=== PATIENT | male | born 1975 | race Caucasian/White ===

== ENCOUNTER 2022-03-13 11:03 | Emergency (ER) | payer BC, MEDICAID ==
[~2022-03-13] VITALS: Ht 172.7 cm; Wt 86.4 kg
[2022-03-13 16:59] LABS: BASOPHILS # (AUTO) 0.1 X10'3 (0-0.2); EOSINOPHILS # (AUTO) 0.1 X10'3 (0-0.9); EOSINOPHILS % (AUTO) 0.9 % (0-6); HEMATOCRIT 44.8 % (42.0-52.0); HEMOGLOBIN 15.2 g/dl (14.0-17.9); LYMPHOCYTES # (AUTO) 3.3 X10'3 (1.1-4.8); LYMPHOCYTES % (AUTO) 28.6 % (21-51); MEAN CORPUSCULAR HEMOGLOBIN 30.2 PG (27.0-31.0); MEAN CORPUSCULAR HGB CONC 33.9 g/dL (33.0-36.5); MEAN CORPUSCULAR VOLUME 89.1 FL (78-98); MEAN PLATELET VOLUME 8.6 FL (7.4-10.4); MONOCYTES # (AUTO) 0.8 X10'3 (0-0.9); MONOCYTES % (AUTO) 6.6 % (2-12); NEUTROPHILS # (AUTO) 7.2 X10'3 (1.8-7.7); NEUTROPHILS % (AUTO) 62.9 % (42-75); PLATELET COUNT 376 X10'3 (140-440); RED BLOOD COUNT 5.03 X10'6 (4.70-6.10); RED CELL DISTRIBUTION WIDTH 14.7 % (11.5-14.5); WHITE BLOOD COUNT 11.5 X10'3 (4.5-11.0)
[2022-03-13 17:16] LABS: ALANINE AMINOTRANSFERASE 11 U/L (12-78); ALBUMIN 4.1 G/DL (3.4-5.0); ALBUMIN/GLOBULIN RATIO 1.1 (1.1-1.5); ALKALINE PHOSPHATASE 82 IU/L (46-116); ANION GAP 11 (8-16); ASPARTATE AMINO TRANSFERASE 20 U/L (10-37); BILIRUBIN,TOTAL 0.8 MG/DL (0.1-1.0); BLOOD UREA NITROGEN 13 MG/DL (7-18); BUN/CREATININE RATIO 14.3 (5.4-32.0); CHLORIDE 101 MMOL/L (99-107); CREATININE 0.91 MG/DL (0.60-1.10); ETHANOL < 0.010 GM/DL (0.0-0.010); GLUCOSE 208 MG/DL (70-104); SODIUM 139 MMOL/L (135-145); TOTAL CARBON DIOXIDE 27.4 MMOL/L (24-32); TOTAL PROTEIN 7.9 G/DL (6.4-8.2); eGFR 89 ML/MIN
[2022-03-13 17:28] LABS: POTASSIUM 2.7 MMOL/L (3.5-5.1)
[2022-03-13 17:29] LABS: CALCIUM 12.1 MG/DL (8.5-10.1)
[2022-03-13 17:50] LABS: URINE AMPHETAMINE SCREEN NEGATIVE (Neg); URINE BARBITUATE SCREEN NEGATIVE (Neg); URINE BENZODIAZEPINES SCREEN NEGATIVE (Neg); URINE CANNABINOID SCREEN NEGATIVE (Neg); URINE COCAINE SCREEN NEGATIVE (Neg); URINE METHADONE SCREEN NEGATIVE (Neg); URINE OPIATE SCREEN NEGATIVE (Neg); URINE PHENCYCLIDINE SCREEN NEGATIVE (Neg)
[2022-03-13] MEDS ORDERED: potassium Cl 20 mEq SR tablet PO STA (17:52)
[2022-03-13 18:17] LABS: HEMOGLOBIN A1C 8.1 % (4.5-6.2)
[2022-03-13] MEDS ORDERED: METF-436 PO (18:20)
[2022-03-13] MEDS ORDERED: POTA-207 PO (18:20)
[2022-03-13] MEDS ORDERED: CITA20TA28 PO (18:20)
[2022-03-13] MEDS ORDERED: LISI40TA13 PO (18:33)
[2022-03-13] MEDS ORDERED: lisinopril 10 MG tablet PO ONE (18:35)
[2022-03-13 18:40] VITALS: BP 191/123
== END 2022-03-13 18:41 | disposition home or self-care (01) ==
LOC: ER 11:05
DX: F32.A Depression, unspecified (principal); R45.851 Suicidal ideations; G43.909 Migraine, unspecified, not intractable, without status migrainosus; Z79.899 Other long term (current) drug therapy
CPT/HCPCS: 36415; 80053; 80305; 80320; 83036; 84443; 85025; 99285

== ENCOUNTER 2022-04-17 08:15 | Emergency (ER) | payer BC, MEDICAID ==
[~2022-04-17] VITALS: Ht 175.3 cm; Wt 89.0 kg
[~2022-04-17 08:15] MED LIST: METF-436 PO
[2022-04-17 08:18] VITALS: BP 157/83
[2022-04-17] MEDS ORDERED: LISI40TA13 PO ×2 (09:28→10:31)
[2022-04-17] MEDS ORDERED: CITA20TA28 PO ×2 (09:28→10:31)
[2022-04-17] MEDS ORDERED: POTA-207 PO (09:28)
[2022-04-17 10:31] LABS: ALANINE AMINOTRANSFERASE 20 U/L (12-78); ALBUMIN 3.8 G/DL (3.4-5.0); ALBUMIN/GLOBULIN RATIO 1.1 (1.1-1.5); ALKALINE PHOSPHATASE 76 IU/L (46-116); ANION GAP 11 (8-16); ASPARTATE AMINO TRANSFERASE 13 U/L (10-37); BILIRUBIN,TOTAL 0.6 MG/DL (0.1-1.0); BLOOD UREA NITROGEN 18 MG/DL (7-18); BUN/CREATININE RATIO 19.8 (5.4-32.0); CALCIUM 11.7 MG/DL (8.5-10.1); CHLORIDE 102 MMOL/L (99-107); CREATININE 0.91 MG/DL (0.60-1.10); GLUCOSE 148 MG/DL (70-104); POTASSIUM 3.7 MMOL/L (3.5-5.1); SODIUM 138 MMOL/L (135-145); TOTAL CARBON DIOXIDE 25.5 MMOL/L (24-32); TOTAL PROTEIN 7.2 G/DL (6.4-8.2); eGFR 89 ML/MIN
[2022-04-17] MEDS ORDERED: [UNRECOGNIZED DRUG - CODE] PO (10:31)
[2022-04-17] MEDS ORDERED: POTA20TA34 PO (10:43)
== END 2022-04-17 10:56 | disposition home or self-care (01) ==
LOC: ER 08:15
DX: Z76.0 Encounter for issue of repeat prescription (principal); G43.909 Migraine, unspecified, not intractable, without status migrainosus; I10 Essential (primary) hypertension; E11.9 Type 2 diabetes mellitus without complications; F31.9 Bipolar disorder, unspecified; Z98.890 Other specified postprocedural states; Z79.899 Other long term (current) drug therapy
CPT/HCPCS: 36415; 80053; 99283; A6258; A6449